=== PATIENT | male | born 1990 | race Caucasian/White ===

== ENCOUNTER 2018-09-26 01:09 | Emergency (ER) | payer OTHER ==
[~2018-09-26] VITALS: Ht 170.2 cm; Wt 95.3 kg
[2018-09-26 01:15] VITALS: BP_SYST 135
--- NOTE | 2018-09-26 01:23 | NUR ---
Patient to ER bed 8 to gown for evaluation. Side rails up. Report given to EVNA MONTOYA.
--- NOTE | 2018-09-26 01:25 | NUR ---
Patient reports fall 09/23/18 and hitting back of head. Patient states he fell so hard he chipped the some teeth. Patient doesn't know if he had loss of consciousness from fall or too much alcohol that night. PAtient denies any headache, nausea, vomiting, or diarrhea. Denies any change of vision. No other complaints/injuries per patient or as noted. WIll continue to monitor.
--- NOTE | 2018-09-26 01:27 | NUR ---
ER Dr. Jama at bedside examining patient.
[2018-09-26 01:37] VITALS: BP_SYST 135
--- NOTE | 2018-09-26 01:37 | NUR ---
Patient given written and verbal discharge instructions and verbalizes understanding. ER MD discussed with patient the results and treatment provided. Patient in stable condition. ID arm band removed. Patient educated on pain management and to follow up with PMD. Pain Scale 0/10 Opportunity for questions provided and answered. Medication side effect fact sheet provided.
== END 2018-09-26 01:37 | disposition home or self-care (01) ==
LOC: SED 01:09
DX: S09.90XA Unspecified injury of head, initial encounter (principal); W01.198A Fall on same level from slipping, tripping and stumbling with subsequent striking against other object, initial encounter; Y93.89 Activity, other specified; Y92.89 Other specified places as the place of occurrence of the external cause; Y99.8 Other external cause status
CPT/HCPCS: 99281

== ENCOUNTER 2019-07-19 11:18 | Outpatient (CLI) | payer OTHER | END 2019-07-19 12:33 | disposition home or self-care (01) | LOC: CANPREER → EDSTATUS 11:33 → SLB 11:35 → MERGE 11:35 → EEVIPCON 11:35 → SLB 12:33 | PROVIDERS: ATTEND Family Medicine | DX: U07.1 COVID-19 (principal); R50.9 Fever, unspecified | CPT/HCPCS: U0002 ==

== ENCOUNTER 2020-01-15 17:10 | Emergency (ER) | payer OTHER, SELFPAY ==
[~2020-01-15] VITALS: Ht 170.2 cm; Wt 81.6 kg
--- NOTE | 2020-01-15 17:20 | NUR ---
ER at bedside examining patient.
--- NOTE | 2020-01-15 17:20 | NUR ---
Patient to ER bed 08 to gown for evaluation. Side rails up.
--- NOTE | 2020-01-15 17:20 | NUR ---
PT REPORTS IMPORVED PAIN LEVEL 2/10 AND TEMPT HAS DECREASED TO 101 DEGREES SO FAR
[2020-01-15 17:23] VITALS: BP_SYST 166
--- NOTE | 2020-01-15 17:25 | NUR ---
COVID SWAB OBTAINED AND SENT
[2020-01-15] MEDS ORDERED: NACL 0.9% 1,000 ML IV ONE (17:30)
[2020-01-15] MEDS ORDERED: KETOROLAC TROMETHAMINE 30 MG VIAL IVP ONE (17:30)
--- NOTE | 2020-01-15 17:37 | NUR ---
PT AAO AND AMBULATORY C/O FEVER, SORE THROT, AND BODY ACHES THAT STARTED TODAY. PT TEMP CURRENTLY 102.6 AND PATIENT REPORTS 5-6/10 ON PAIN SCALE.
[2020-01-15] MEDS ORDERED: PENICILLIN G BENZATHINE 1.2 MMU/2 ML SYR IM ONE (17:45)
[2020-01-15] MEDS ORDERED: ACETAMINOPHEN 500 MG TABLET PO ONE (18:15)
--- NOTE | 2020-01-15 18:15 | NUR ---
PT RECHECK OF TEMP 102.9 ORALLY, PT MEDICATED WITH 1G TYLENOL PO.
[2020-01-15 19:58] VITALS: BP_SYST 166
--- NOTE | 2020-01-15 19:58 | NUR ---
TEMP IMPROVING, DOWN TO 100.1. PT REPORTS FEELING MUCH BETTER.
--- NOTE | 2020-01-15 19:59 | NUR ---
Patient given written and verbal discharge instructions and verbalizes understanding. DR. MARNIE BEASLEY MD discussed with patient the results and treatment provided. Patient in stable condition. ID arm band removed. IV catheter removed intact and dressing applied, no active bleeding. Rx of MOTRIN AND PREDNISONE given. Patient educated on pain management and to follow up with PMD. Pain Scale 2/10. Opportunity for questions provided and answered. Medication side effect fact sheet provided.
--- NOTE | 2020-01-17 11:47 | NUR ---
Covid Results Patient called to [facility] requesting covid results - ID verified as [id number], pt informed results are negative. Pt verbalized complete understanding.
== END 2020-01-15 19:58 | disposition home or self-care (01) ==
LOC: SED 17:10
DX: J02.0 Streptococcal pharyngitis (principal); Z20.828 Contact with and (suspected) exposure to other viral communicable diseases
CPT/HCPCS: 96361; 96372; 96374; 99283; C9803; J0561; J1885; J7030; U0003